=== PATIENT | female | born 1980 | race Caucasian/White ===

== ENCOUNTER 2017-01-13 18:57 | Emergency (ER) | payer MEDICAID, OTHER ==
[2017-01-13 19:07] VITALS: BP 133/81; PULSE 76; RESP 16; TEMP 97.7; O2SAT 98
[2017-01-13] MEDS ORDERED: Sodium Chloride 0.9% 1,000 ML IV STA (19:46)
--- NOTE | 2017-01-13 20:13 | ED PDOC ---
HPI: Abdomen Time Seen by Provider: 01/13/17 19:15 Chief Complaint (Nursing): Abdominal Pain Chief Complaint (Provider): Abdominal Pain History Per: Patient History/Exam Limitations: no limitations Onset/Duration Of Symptoms: Days (x2) Current Symptoms Are (Timing): Still Present Additional Complaint(s): Vera Dumont is a 36 year old female with previous medical history of diabetes , hypertension, and arthritis who presents to the emergency department with a complaint of lower abdominal pain associated with left-sided back pain, subjective fever, nausea, diarrhea, and dysuria ongoing for 2 days. Denied any vomiting or further medical complaints. PMD: none provided Past Medical History Reviewed: Historical Data, Nursing Documentation, Vital Signs Vital Signs: Last Vital Signs Temp 97.7 F 01/13/17 19:04 Pulse 76 01/13/17 19:04 Resp 16 01/13/17 19:04 BP 133/81 01/13/17 19:04 Pulse Ox 98 01/14/17 00:50 - Medical History PMH: Arthritis, Diabetes, HTN - Surgical History Other surgeries: hemorrhoid surgery - Family History Family History: States: Unknown Family Hx - Social History Current smoker - smoking cessation education provided: No Alcohol: None Drugs: Denies - Home Medications Home Medications: Ambulatory Orders Medication Instructions Recorded Nitrofurantoin Macrocrystals 100 mg PO BID #14 cap 01/14/17 [Macrobid] - Allergies Allergies/Adverse Reactions: Allergies Allergy/AdvReac Type Severity Reaction Status Date / Time No Known Allergies Allergy Verified 01/13/17 19:04 Review of Systems ROS Statement: Except As Marked, All Systems Reviewed And Found Negative Constitutional: Positive for: Fever Gastrointestinal: Positive for: Nausea, Abdominal Pain (lower), Diarrhea. Negative for: Vomiting Genitourinary Female: Positive for: Dysuria Musculoskeletal: Positive for: Back Pain (left-sided) Physical Exam - Reviewed Nursing Documentation Reviewed: Yes Vital Signs Reviewed: Yes - Physical Exam Appears: Positive for: Well, Non-toxic, No Acute Distress Head Exam: Positive for: ATRAUMATIC, NORMAL INSPECTION, NORMOCEPHALIC Skin: Positive for: Normal Color Cardiovascular/Chest: Positive for: Regular Rate, Rhythm. Negative for: Chest Non Tender Respiratory: Positive for: Normal Breath Sounds. Negative for: Respiratory Distress Gastrointestinal/Abdominal: Positive for: Normal Exam, Bowel Sounds, Soft. Negative for: Tenderness, Guarding, Rebound Back: Positive for: L CVA Tenderness. Negative for: Normal Inspection, R CVA Tenderness Extremity: Positive for: Normal ROM Lymphatic: Positive for: Inguinal Node Tenderness (left) Neurologic/Psych: Positive for: Alert, specialist managers II-XII, Oriented - Laboratory Results Result Diagrams: 01/13/17 20:41 01/13/17 20:41 - ECG O2 Sat by Pulse Oximetry: 98 (RA) Pulse Ox Interpretation: Normal Medical Decision Making Medical Decision Making: Initial Impression: Abdominal pain R/O UTI, kidney stones Initial Plan: * CT ABD/Pelvis without contrast * Labs * Toradol 30mg IV * NS 1,000ml IV per 150mls/hr * Zofran 4mg Time: 22:59 CT Abdomen/Pelvis: FINDINGS: Lower thorax: The bilateral lung bases are clear. ABDOMEN: Liver: No acute findings Gallbladder and bile ducts: No acute finding. No calcified stones. No intra- extrahepatic biliary ductal dilation. Pancreas: Limited evaluation secondary to the lack of intravenous contrast. Spleen: No acute findings. Adrenals: No acute findings. Kidneys and ureters: No obstructing stones. No hydronephrosis. Multiple phleboliths within the pelvis, both inferior and lateral to the course of the left ureter. PELVIS: Bladder: No acute findings. Reproductive: No acute findings. Appendix: The appendix is of normal caliber (series 5, image 65; series 601, image 65). ABDOMEN and PELVIS: Stomach and bowel: Colonic diverticulosis, without inflammation. Peritoneum: No acute findings. Lymph nodes: Limited evaluation without intravenous contrast. Vasculature: No aortic aneurysm. Bones: No acute fracture. IMPRESSION: No obstructive uropathy. Colonic diverticulosis, without inflammation. Time: 23:28 --Pending urinalysis and urine culture Time: 00:44 Clinical Impression: UTI, Abdominal pain Upon provider reevaluation patient is medically stable, and requires no further treatment in the ED at this time. Patient will be discharged with Rx for Macrobid. Counseling was provided and all questions were answered regarding diagnosis and need for follow up with PMD in 1-2 days. There is agreement to discharge plan. Return if symptoms persist or worsen. Scribe Attestation: Documented by Jessica Vilchis, acting as a scribe for Priti Trujillo MD. Provider Scribe Attestation: All medical record entries made by the Scribe were at my direction and personally dictated by me. I have reviewed the chart and agree that the record accurately reflects my personal performance of the history, physical exam, medical decision making, and the department course for this patient. I have also personally directed, reviewed, and agree with the discharge instructions and disposition. Disposition - Clinical Impression Clinical Impression: Abdominal pain - Patient ED Disposition Is Patient to be Admitted: No Doctor Will See Patient In The: Office Counseled Patient/Family Regarding: Studies Performed, Diagnosis, Need For Followup - Disposition Referrals: [facility] [Outside] [facility] [Outside] Disposition: Routine/Home Disposition Time: 21:00 Condition: IMPROVED Additional Instructions: follow up with your primary doctor in 1-2 days return to the ED with nay worsening or concerning symptoms. Prescriptions: Nitrofurantoin Macrocrystals [Macrobid] 100 mg PO BID #14 cap Instructions: Urinary Tract Infection in Women (ED), Abdominal Pain (ED) Forms: [employer] (T[employer]ight) Print Language: CROATIAN
[2017-01-13 20:45] LABS: BASO # 0.1 K/uL (0.0-0.2); BASO % 0.8 % (0.0-2.0); EOS # 0.2 K/uL (0.0-0.7); EOS % 1.7 % (0.0-4.0); HEMOGLOBIN 13.9 g/dL (12.0-16.0); LYMPH # 3.6 K/uL (1.0-4.3); LYMPH % 36.7 % (20.0-40.0); MEAN CELL VOLUME 88.5 fl (81.0-99.0); MEAN CORPUSCULAR HEMOGLOBIN 30.2 pg (27.0-31.0); MEAN CORPUSCULAR HGB CONC 34.1 g/dL (33.0-37.0); MEAN PLATELET VOLUME 8.8 fl (7.2-11.7); MONO # 0.5 K/uL (0.0-0.8); MONO % 4.9 % (0.0-10.0); NEUT # 5.5 K/uL (1.8-7.0); NEUT % 55.9 % (50.0-75.0); NRBC % 0.1 % (0.0-0.0); RBC 4.62 Mil/uL (3.80-5.20); RED CELL DISTRIBUTION WIDTH 12.4 % (11.5-14.5); WHITE BLOOD COUNT 9.8 K/uL (4.8-10.8)
[2017-01-13 20:54] LABS: ALB/GLOB RATIO 1.3 (1.0-2.1); ALBUMIN 4.2 g/dL (3.5-5.0); ALT/SGPT 220 U/L (9-52); AST/SGOT 117 U/L (14-36); BLOOD UREA NITROGEN 11 mg/dl (7-17); CALCIUM 9.4 mg/dL (8.4-10.2); GFR AFRICAN-AMERICAN > 60; GFR NON-AFRICAN AMERICAN > 60
--- NOTE | 2017-01-13 22:59 | CT ---
EXAM: CT Abdomen and Pelvis Without Intravenous Contrast CLINICAL HISTORY: 36 years old, female; Pain; Abdominal pain; Flank; Left; Additional info: L flank pain rule out stone TECHNIQUE: Axial computed tomography images of the abdomen and pelvis without intravenous contrast. All CT scans at this facility use one or more dose reduction techniques, viz.: automated exposure control; ma/kV adjustment per patient size (including targeted exams where dose is matched to indication; i.e. head); or iterative reconstruction technique. Coronal and sagittal reformatted images were created and reviewed. COMPARISON: No relevant prior studies available. FINDINGS: Lower thorax: The bilateral lung bases are clear. ABDOMEN: Liver: No acute findings Gallbladder and bile ducts: No acute finding. No calcified stones. No intra-extrahepatic biliary ductal dilation. Pancreas: Limited evaluation secondary to the lack of intravenous contrast. Spleen: No acute findings. Adrenals: No acute findings. Kidneys and ureters: No obstructing stones. No hydronephrosis. Multiple phleboliths within the pelvis, both inferior and lateral to the course of the left ureter. PELVIS: Bladder: No acute findings. Reproductive: No acute findings. Appendix: The appendix is of normal caliber (series 5, image 65; series 601, image 65). ABDOMEN and PELVIS: Stomach and bowel: Colonic diverticulosis, without inflammation. Peritoneum: No acute findings. Lymph nodes: Limited evaluation without intravenous contrast. Vasculature: No aortic aneurysm. Bones: No acute fracture. IMPRESSION: No obstructive uropathy. Colonic diverticulosis, without inflammation.
[2017-01-14 00:11] LABS: SQUAMOUS EPITHIAL 8 /hpf (0-5); URINE BACTERIA RARE (<OCC); URINE BILIRUBIN NEGATIVE (NEGATIVE); URINE BLOOD NEGATIVE (NEGATIVE); URINE CLARITY CLOUDY (Clear); URINE COLOR YELLOW (YELLOW); URINE GLUCOSE (UA) NEG (Normal); URINE LEUKOCYTE ESTERASE SMALL Leu/uL (Negative); URINE NITRATE NEGATIVE (NEGATIVE); URINE PROTEIN NEGATIVE (NEGATIVE); URINE TRIPLE PHOSPHATE CRYSTAL OCC /hpf (<OCC); URINE UROBILINOGEN 0.2-1.0 mg/dL (0.2-1.0)
== END 2017-01-14 00:50 | disposition home or self-care (01) ==
LOC: H.ER 18:57
DX: R10.30 Lower abdominal pain, unspecified (principal); I10 Essential (primary) hypertension; E11.9 Type 2 diabetes mellitus without complications; M19.90 Unspecified osteoarthritis, unspecified site

== ENCOUNTER 2017-10-07 18:14 | Emergency (ER) | payer MEDICAID ==
[2017-10-07 18:22] VITALS: O2SAT 99
[2017-10-07] MEDS ORDERED: Sodium Chloride 0.9% 1,000 ML IV STA (18:42)
--- NOTE | 2017-10-07 18:52 | ED PDOC ---
HPI: Abdomen <Weston Douglass - Last Filed: 10/07/17 20:22> Chief Complaint (Provider): Abdominal Pain History Per: Patient History/Exam Limitations: no limitations Onset/Duration Of Symptoms: Days (x2) Current Symptoms Are (Timing): Still Present Severity: Severe Location Of Pain/Discomfort: Diffuse <Uriel Arredondo - Last Filed: 10/08/17 19:42> Time Seen by Provider: 10/07/17 18:31 Chief Complaint (Nursing): GI Problem Additional Complaint(s): 36 year old female, with past medical history of gastritis, diabetes, and HTN, presents to the emergency department complaining of diffuse, severe abdominal pain accompanied with non bloody vomit and watery, non bloody diarrhea, onset 2 days. She states that she took medication for her gastritis, with no relief. Denies fever and chills. PMD: Berto Marks (Maria ElenaCedricknano Toney) Past Medical History <Weston Douglass - Last Filed: 10/07/17 20:22> Reviewed: Historical Data, Nursing Documentation, Vital Signs - Medical History PMH: Arthritis, Diabetes, Gastritis, HTN - Surgical History Other surgeries: hemorrhoids - Family History Family History: States: Unknown Family Hx <Uriel Arredondo - Last Filed: 10/08/17 19:42> Vital Signs: Last Vital Signs Temp 98.0 F 10/07/17 21:01 Pulse 90 10/07/17 21:01 Resp 16 10/07/17 21:01 BP 124/74 10/07/17 21:01 Pulse Ox 99 10/07/17 21:01 - Home Medications Home Medications: Ambulatory Orders Medication Instructions Recorded MetFORMIN [glucoPHAGE] 500 mg PO BID 10/07/17 Dumas-3 Fatty Acids/Fish Oil [Fish 1 tab PO DAILY 10/07/17 Oil 1,000 mg Capsule] Ondansetron ODT [Zofran ODT] 4 mg PO Q8 PRN #12 odt 10/07/17 - Allergies Allergies/Adverse Reactions: Allergies Allergy/AdvReac Type Severity Reaction Status Date / Time No Known Allergies Allergy Verified 10/07/17 18:20 Review of Systems ROS Statement: Except As Marked, All Systems Reviewed And Found Negative Constitutional: Negative for: Fever, Chills Gastrointestinal: Positive for: Vomiting (non bloody), Abdominal Pain (severe, diffuse), Diarrhea (watery, non bloody) <Uriel Arredondo - Last Filed: 10/08/17 19:42> Physical Exam - Reviewed Nursing Documentation Reviewed: Yes Vital Signs Reviewed: Yes - Physical Exam Appears: Positive for: Non-toxic, No Acute Distress Head Exam: Positive for: ATRAUMATIC, NORMOCEPHALIC Skin: Positive for: Normal Color, Warm, Dry Eye Exam: Positive for: Normal appearance, EOMI, PERRL ENT: Positive for: Normal ENT Inspection Neck: Positive for: Normal, Painless ROM, Supple Cardiovascular/Chest: Positive for: Regular Rate, Rhythm. Negative for: Murmur Respiratory: Positive for: Normal Breath Sounds. Negative for: Respiratory Distress Gastrointestinal/Abdominal: Positive for: Soft, Tenderness (mild diffuse) Back: Positive for: Other (bilateral lower back, and para spinal). Negative for : L CVA Tenderness, R CVA Tenderness Extremity: Positive for: Normal ROM Neurologic/Psych: Positive for: Alert, Oriented. Negative for: Motor/Sensory Deficits <Uriel Arredondo A - Last Filed: 10/08/17 19:42> - Laboratory Results Result Diagrams: 10/07/17 18:25 10/07/17 18:25 <Weston Douglass - Last Filed: 10/07/17 20:22> - Laboratory Results Result Diagrams: 10/07/17 18:25 10/07/17 18:25 - ECG O2 Sat by Pulse Oximetry: 99 (RA) Pulse Ox Interpretation: Normal <Uriel Arredondo - Last Filed: 10/08/17 19:42> Medical Decision Making <Weston Douglass - Last Filed: 10/07/17 20:22> <HieunilesUriel - Last Filed: 10/08/17 19:42> Medical Decision Making: Time: 20:16 CT Abd/ Pelvis FINDINGS: LUNG BASES: Unremarkable. ABDOMEN: LIVER: Unremarkable. GALLBLADDER AND BILE DUCTS: Unremarkable. No calcified stones. No ductal dilation. PANCREAS: Unremarkable. No mass. No ductal dilation. SPLEEN: Unremarkable. No splenomegaly. ADRENALS: Unremarkable. No mass. KIDNEYS AND URETERS: Unremarkable. No solid mass. No hydronephrosis. STOMACH AND BOWEL: Gastric mucosal may be thickened although this appear may also be from underdistension. Mild stool through the colon. PELVIS: APPENDIX: No findings to suggest acute appendicitis. BLADDER: Unremarkable. REPRODUCTIVE: Unremarkable as visualized. ABDOMEN and PELVIS: INTRAPERITONEAL SPACE: No free air. No significant fluid collection. BONES/JOINTS: No acute fracture. SOFT TISSUES: Unremarkable. VASCULATURE: Unremarkable. No abdominal aortic aneurysm. LYMPH NODES: Few scattered subcentimeter mesenteric lymph nodes. OTHER FINDINGS: Dependent atelecatasis. IMPRESSION: 1. Gastric mucosal may be thickened although this appear may also be from underdistension. 2. Mild stool through the colon. 3. Few scattered subcentimeter mesenteric lymph nodes. Scribe Attestation: Documented by Christine Casiano, acting as a scribe for Weston Douglass MD Provider Scribe Attestation: All medical record entries made by the Scribe were at my direction and personally dictated by me. I have reviewed the chart and agree that the record accurately reflects my personal performance of the history, physical exam, medical decision making, and the department course for this patient. I have also personally directed, reviewed, and agree with the discharge instructions and disposition. (Weston Douglass) Initial Impression: abdominal pain with vomiting and diarrhea DDx: gastroenteritis, cholecystitis, pancreatitis, considering other ddx, but unlikely: bowel perforation Time: 18:41 Initial Plan: --CT Abd/Pelvis IV contrast --CMP --Lipase --CBC w/ differential --Bentyl 10mg PO --Sodium Chloride 0.9% 1000ml IV --Pepcid 20mg IVP --Toradol 30mg IVP --Zofran 4mg PO Scribe Attestation: Documented by Christine Casiano, acting as a scribe for Uriel Arredondo MD Provider Scribe Attestation: All medical record entries made by the Scribe were at my direction and personally dictated by me. I have reviewed the chart and agree that the record accurately reflects my personal performance of the history, physical exam, medical decision making, and the department course for this patient. I have also personally directed, reviewed, and agree with the discharge instructions and disposition. (Uriel Arredondo) Disposition <Weston Douglass - Last Filed: 10/07/17 20:22> - Patient ED Disposition Is Patient to be Admitted: Transfer of Care Counseled Patient/Family Regarding: Studies Performed, Diagnosis - Disposition Disposition: Transfer of Care Disposition Time: 19:00 Patient Signed Over To: Weston Douglass <Uriel Arredondo - Last Filed: 10/08/17 19:42> - Clinical Impression Clinical Impression: Gastroenteritis - Disposition Referrals: [facility] [Outside] Condition: STABLE Prescriptions: Ondansetron ODT [Zofran ODT] 4 mg PO Q8 PRN #12 odt PRN Reason: Nausea/Vomiting Instructions: Viral Gastroenteritis Forms: [employer] (Czech) Print Language: CAMEROONIAN
[2017-10-07 18:59] LABS: BASO # 0.1 K/uL (0.0-0.2); BASO % 0.8 % (0.0-2.0); EOS % 0.5 % (0.0-4.0); HEMOGLOBIN 13.3 g/dL (12.0-16.0); LYMPH # 1.7 K/uL (1.0-4.3); LYMPH % 28.1 % (20.0-40.0); MEAN CELL VOLUME 87.1 fl (81.0-99.0); MEAN CORPUSCULAR HGB CONC 34.4 g/dL (33.0-37.0); MEAN PLATELET VOLUME 8.5 fl (7.2-11.7); MONO # 0.6 K/uL (0.0-0.8); MONO % 10.1 % (0.0-10.0); NEUT # 3.7 K/uL (1.8-7.0); NEUT % 60.5 % (50.0-75.0); NRBC % 0.1 % (0.0-0.0); RBC 4.45 Mil/uL (3.80-5.20); RED CELL DISTRIBUTION WIDTH 12.2 % (11.5-14.5); WHITE BLOOD COUNT 6.1 K/uL (4.8-10.8)
[2017-10-07] MEDS ORDERED: Iohexol 300 100 ML IJ ONE (19:10)
[2017-10-07] MEDS ORDERED: Sodium Chloride 0.9% 100 ML ONE (19:11)
--- NOTE | 2017-10-07 19:11 | ED PDOC ---
"- Laboratory Results Result Diagrams: 10/07/17 18:25 10/07/17 18:25 - ECG O2 Sat by Pulse Oximetry: 99 (RA) Medical Decision Making Medical Decision Makin:00 Dr. Arredondo endorses transfer of care to Dr. Douglass pending labs and CT Abd / Pelvis. 2019 EXAM: CT Abdomen and Pelvis With Intravenous Contrast EXAM DATE/TIME: Examination ordered 10/07/2017 6:41 PM. Image number total count reviewed [id number] CLINICAL HISTORY: The patient is 36 years old and is female; Pain and signs and symptoms; Vomiting and other: Diarrhea; Abdominal pain; Generalized; Patient HX: HX of gastitis; Additional info: Abdominal pain vomiting and diarrhea. Sent phy. Doc. Facility exam id and description: Ct_ abdpelciv abd pelvis iv contrast only. Sent prior CT a/p with report from 01-13-2017 TECHNIQUE: Axial computed tomography images of the abdomen and pelvis with intravenous contrast. All CT scans at this facility use one or more dose reduction techniques, viz.: automated exposure control; ma/kV adjustment per patient size (including targeted exams where dose is matched to indication; i.e. head); or iterative reconstruction technique. Coronal and sagittal reformatted images were created and reviewed. CONTRAST: 90 mL of [id number] administered intravenously. COMPARISON: CT - ABD PELVIS W/O PO OR IV CONT 2017-01-13 21:38 FINDINGS: LUNG BASES: Unremarkable. ABDOMEN: LIVER: Unremarkable. GALLBLADDER AND BILE DUCTS: Unremarkable. No calcified stones. No ductal dilation. PANCREAS: Unremarkable. No mass. No ductal dilation. SPLEEN: Unremarkable. No splenomegaly. ADRENALS: Unremarkable. No mass. KIDNEYS AND URETERS: Unremarkable. No solid mass. No hydronephrosis. STOMACH AND BOWEL: Gastric mucosal may be thickened although this appear may also be from underdistension. Mild stool through the colon. PELVIS: KELY BAR | Preliminary Radiology Report SENIOR INSPECTOR (QA) DISCREPANCY? If there is a discrepancy between the preliminary and final interpretation, please notify [facility] via [email or web address]. If you do not have access to our QA portal, call our QA team at [phone] CONFIDENTIALITY STATEMENT This report is intended only for the use of the referring physician, and only in accordance with law, If you received this in error, call [phone] Page 2 of 2 APPENDIX: No findings to suggest acute appendicitis. BLADDER: Unremarkable. REPRODUCTIVE: Unremarkable as visualized. ABDOMEN and PELVIS: INTRAPERITONEAL SPACE: No free air. No significant fluid collection. BONES/JOINTS: No acute fracture. SOFT TISSUES: Unremarkable. VASCULATURE: Unremarkable. No abdominal aortic aneurysm. LYMPH NODES: Few scattered subcentimeter mesenteric lymph nodes. OTHER FINDINGS: Dependent atelecatasis. IMPRESSION: 1. Gastric mucosal may be thickened although this appear may also be from underdistension. 2. Mild stool through the colon. 3. Few scattered subcentimeter mesenteric lymph nodes. Thank you for allowing us to participate in the care of your patient. Patient states she is feeling better, no longer having vomiting or diarrhea, was able to tolerate PO. CT shows non-acute findings, encouraged patient to keep up with fluids, will prescribe zofran ODT, advised to return to ER if vomiting returns despite medication, fevers, worsening abdominal pain, or any other concerning symptoms. Patient well appearing, ambulatory upon discharge. Disposition - Clinical Impression Clinical Impression: Gastroenteritis - POA Present On Arrival: None - Disposition Referrals: [facility] [Outside] Disposition: Routine/Home Disposition Time: 20:27 Condition: IMPROVED Prescriptions: Ondansetron ODT [Zofran ODT] 4 mg PO Q8 PRN #12 odt PRN Reason: Nausea/Vomiting Instructions: Viral Gastroenteritis Forms: [employer] (Polish) Print Language: SAMOAN"
[2017-10-07 19:14] LABS: ALB/GLOB RATIO 1.1 (1.0-2.1); ALBUMIN 3.5 g/dL (3.5-5.0); ALT/SGPT 76 U/L (9-52); AST/SGOT 44 U/L (14-36); BLOOD UREA NITROGEN 10 mg/dl (7-17); GFR AFRICAN-AMERICAN > 60; GFR NON-AFRICAN AMERICAN > 60; LIPASE 49 U/L (23-300)
[2017-10-07 21:02] VITALS: BP 124/74; PULSE 90; RESP 16; TEMP 98
--- NOTE | 2017-10-08 08:14 | CT ---
PROCEDURE: CT Abdomen and Pelvis with contrast HISTORY: abdominal pain vomiting and diarrhea COMPARISON: Abdomen pelvis CT without contrast 01/13/2017. TECHNIQUE: Following the intravenous administration of iodinated contrast material, a CT examination of the abdomen and pelvis performed from the domes of the diaphragms to the symphysis pubis with reformatted datasets provided not only axial but also sagittal and coronal planes. Oral contrast was not administered as per referring physician request. Contrast dose: Omnipaque 300, 90 cc Radiation dose: Total exam DLP = 742.61 mGy-cm. This CT exam was performed using one or more of the following dose reduction techniques: Automated exposure control, adjustment of the mA and/or kV according to patient size, and/or use of iterative reconstruction technique. FINDINGS: LOWER THORAX: Diminished hepatic attenuation is appreciate busy compatible with hepatic steatosis. No definite mass or intrahepatic biliary duct dilatation is appreciable. LIVER: Unremarkable. No gross lesion or ductal dilatation. GALLBLADDER AND BILE DUCTS: Unremarkable. PANCREAS: Unremarkable. No gross lesion or ductal dilatation. SPLEEN: Unremarkable. ADRENALS: Unremarkable. No mass. KIDNEYS AND URETERS: Unremarkable. No hydronephrosis. No solid mass. VASCULATURE: Unremarkable. No aortic aneurysm. BOWEL: Evaluation the gastrointestinal tract is compromised by the lack of intra oral contrast material. No bowel obstruction is evident has liquified fecal material throughout the colon compatible the patient's clinical history of diarrhea. Stomach is largely collapsed except for limited retained air and fluid. APPENDIX: Normal appendix. PERITONEUM: Unremarkable. No free fluid. No free air. LYMPH NODES: Unremarkable. No enlarged lymph nodes. BLADDER: Unremarkable. REPRODUCTIVE: Unremarkable. BONES: No acute fracture. OTHER FINDINGS: None. IMPRESSION: Liquid fecal material seen throughout various large-bowel segments compatible the patient's history of diarrhea. No prominent mural thickening is appreciated though would suggest colitis at this time. Lack of oral contrast limits interpretation of the bowel. No bowel obstruction, free air, ascites or mesenteric edema. Hepatic steatosis.
== END 2017-10-07 21:00 | disposition home or self-care (01) ==
LOC: H.ER 18:14
DX: K52.9 Noninfective gastroenteritis and colitis, unspecified (principal); E11.9 Type 2 diabetes mellitus without complications; I10 Essential (primary) hypertension; Z79.84 Long term (current) use of oral hypoglycemic drugs
CPT/HCPCS: 74177; 80053; 81025; 83690; 85025; 96361; 96374; 96375; 99283; J1885; J7040; Q9967

== ENCOUNTER 2017-12-06 14:08 | Emergency (ER) | payer MEDICAID ==
[2017-12-06 14:16] VITALS: BP 122/80; PULSE 78; RESP 18; TEMP 98.5; O2SAT 99
--- NOTE | 2017-12-06 14:34 | ED PDOC ---
HPI: Female Pain Time Seen by Provider: 12/06/17 14:14 Chief Complaint (Nursing): Dizziness/Lightheaded Chief Complaint (Provider): Genitourinary (Female) History Per: Patient History/Exam Limitations: no limitations Onset/Duration Of Symptoms: Days (x3) Current Symptoms Are (Timing): Still Present Additional Complaint(s): 37 year old female presents to the ED for evaluation of symptoms similar to UTIs she has had in the past. Patient states for the past three days she has been experiencing chills, nausea, lower abdominal pain radiating to her lower back, frequency, urgency, dysuria, dizziness, and an 8/10 frontal headache. Denies taking any medications besides her daily two doses of 500mg Metformin, which she is compliant with. Also, she reports her glucometer at home is broken , and is requesting her blood sugar levels to be checked at this time. Otherwise , (-) fever, (-) nausea/vomiting, (-) chest pain, (-) shortness of breath, (-) cough (-) recent travel (-) diarrhea (-) rash (-) visual changes (-) abnormal vaginal bleeding or discharge (-) blood in stools. LNMP: 2 years ago PMD: Sylvain Alcantara Past Medical History Reviewed: Historical Data, Nursing Documentation, Vital Signs Vital Signs: Last Vital Signs Temp 98.5 F 12/06/17 14:13 Pulse 78 12/06/17 14:13 Resp 18 12/06/17 14:13 BP 122/80 12/06/17 14:13 Pulse Ox 99 12/06/17 14:13 - Medical History PMH: Arthritis, Diabetes, Gastritis, HTN - Surgical History Other surgeries: procedure for hemorrhoids; left ear surg - Family History Family History: States: Unknown Family Hx - Social History Current smoker - smoking cessation education provided: No Alcohol: None Drugs: Denies - Home Medications Home Medications: Ambulatory Orders Medication Instructions Recorded MetFORMIN [glucoPHAGE] 500 mg PO BID 10/07/17 [place]-3 Fatty Acids/Fish Oil [Fish 1 tab PO DAILY 10/07/17 Oil 1,000 mg Capsule] Ondansetron ODT [Zofran ODT] 4 mg PO Q8 PRN #12 odt 10/07/17 Acetaminophen [Acetaminophen 8 650 mg PO Q8 PRN #24 tablet.er 12/06/17 Hour] Naproxen 500 mg PO BID PRN #20 tab 12/06/17 Nitrofurantoin Macrocrystals 100 mg PO BID #14 cap 12/06/17 [Macrobid] Phenazopyridine HCl [Pyridium] 200 mg PO BID PRN #4 tablet 12/06/17 - Allergies Allergies/Adverse Reactions: Allergies Allergy/AdvReac Type Severity Reaction Status Date / Time No Known Allergies Allergy Verified 10/07/17 18:20 Review of Systems ROS Statement: Except As Marked, All Systems Reviewed And Found Negative Constitutional: Negative for: Fever Cardiovascular: Negative for: Chest Pain Respiratory: Negative for: Shortness of Breath Gastrointestinal: Positive for: Nausea, Abdominal Pain (lower, radiating to lower back). Negative for: Vomiting Genitourinary Female: Positive for: Dysuria, Frequency (and urgency) Neurological: Positive for: Headache (frontal), Dizziness Physical Exam - Reviewed Nursing Documentation Reviewed: Yes Vital Signs Reviewed: Yes - Physical Exam Comments: GENERAL APPEARANCE: Patient is awake, alert, oriented x 3, in no acute distress. Resting comfortably. SKIN: Warm, dry; (-) cyanosis. EYES: (-) conjunctival pallor. ENMT: Mucous membranes are moist. Airway patent: (-) stridor. Pharynx: (-) swelling, (-) erythema. TMs (-) bulging (-) erythema NECK: Supple, FROM (-) tenderness (-) stiffness, (-) lymphadenopathy. CHEST AND RESPIRATORY: (-) wheezing; (-) rales, (-) rhonchi, (-) rub; breath sounds equal bilaterally. Speaking in full sentences, respirations even and nonlabored. HEART AND CARDIOVASCULAR: (-) irregularity; (-) murmur, (-) gallop. ABDOMEN AND GI: Soft; (+) suprapubic tenderness (-) distention, (-) guarding, ( -) palpable mas (-) CVA tenderness bilterally. BACK: (+) left paralumbar tenderness (-) midline tenderness EXTREMITIES: (-) deformity, (-) edema. NEURO AND PSYCH: Mental status as above; (-) focal findings. Gait steady, speech clear. (-) facial asymmetry. EOMI and painless. Pupils equal and reactive. CN II-XII grossly intact. Cerebellar tests intact. - Laboratory Results Result Diagrams: 12/06/17 14:33 12/06/17 14:33 - ECG O2 Sat by Pulse Oximetry: 99 (RA) Pulse Ox Interpretation: Normal Medical Decision Making Medical Decision Making: Time: 1416 Initial Impression: nausea, headache, dizziness, urinary frequency, dysuria, probable UTI Initial Plan: --EKG --CMP --Urine --CBC with differential --Antivert 25 mg PO --Normal saline IV --Reglan 10 mg IVP --Toradol 30mg IVP --Urine culture --Glucose accucheck --Urinalysis --Pyridium PO 1430 test is negative. Accucheck 116. 1510 Labs reviewed. No elevation of WBC. H&H stable. EKG: NSR @ 67bpm (-) ST elevation, QTc 395 Urinalysis (-) nitrates (-) leukocytes. 1550 Patient reports persistent headache. Head CT without contrast ordered to r/o intracranial pathology. 164 CT Head FINDINGS: HEMORRHAGE: No intracranial hemorrhage. BRAIN: No mass effect or edema. No atrophy or chronic microvascular ischemic changes. VENTRICLES: Unremarkable. No hydrocephalus. CALVARIUM: Unremarkable. PARANASAL SINUSES: Unremarkable as visualized. No significant inflammatory changes MASTOID AIR CELLS: Unremarkable as visualized. No inflammatory changes. OTHER FINDINGS: None. IMPRESSION: No acute intracranial pathology. 1710 On re-evaluation, patient reports improvement of symptoms, resolution of headache, abdominal pain, nausea and dizziness, however reports persistent urinary symptoms. Macrobid 100mg PO ordered. Patient remains AAOx3, in no acute distress. Neck is supple, lungs CTA, cardiac RRR, abdomen is soft and non-tender, neuro exam shows no focal findings. VSS, stable for discharge. Diagnostic results d/w the patient in great detail. Dx of headache, dizziness, dysuria, possible UTI d/w the patient. Based on history, exam and diagnostic results plan will be for discharge and outpatient follow up. Advised to follow up with primary care physician/clinic in 1-2 days without fail. Advised to take medication as prescribed. Return to the emergency room at any time for any new or worsening symptoms. Patient states she fully agrees with and understands discharge instructions. States that she agrees with the plan and disposition. Verbalized and repeated discharge instructions and plan. I have given the patient opportunity to ask any additional questions. Scribe Attestation: Documented by Christine Casiano, acting as a scribe for Paulina Jones PA-C. Provider Scribe Attestation: All medical record entries made by the Scribe were at my direction and personally dictated by me. I have reviewed the chart and agree that the record accurately reflects my personal performance of the history, physical exam, medical decision making, and the department course for this patient. I have also personally directed, reviewed, and agree with the discharge instructions and disposition. Disposition - Clinical Impression Clinical Impression: Dizziness, UTI (urinary tract infection), Headache, Abdominal pain, Chills - Patient ED Disposition Is Patient to be Admitted: No Counseled Patient/Family Regarding: Studies Performed, Diagnosis, Need For Followup, Rx Given - Disposition Referrals: Sylvain Alcantara MD [Primary Care Provider] - Disposition: Routine/Home Disposition Time: 17:09 Condition: STABLE Additional Instructions: FOLLOW UP WITH PMD IN 1-2 DAYS WITHOUT FAIL. RETURN TO ED WITH ANY NEW OR WORSENING SYMPTOMS. Prescriptions: Acetaminophen [Acetaminophen 8 Hour] 650 mg PO Q8 PRN #24 tablet.er PRN Reason: Headache Naproxen 500 mg PO BID PRN #20 tab PRN Reason: Pain, Moderate (4-7) Nitrofurantoin Macrocrystals [Macrobid] 100 mg PO BID #14 cap Phenazopyridine HCl [Pyridium] 200 mg PO BID PRN #4 tablet PRN Reason: URINARY DISCOMFORT Instructions: Urinary Tract Infections in Adults, Headache, Adult, Acute Abdomen (Belly Pain), Adult (DC), Dizziness, Nonvertigo, (DC) Forms: [employer] (E[place]ian) Print Language: MACANESE - POA Present On Arrival: None Results - Lab Results Lab Results: 12/06/17 12/06/17 12/06/17 14:33 14:33 14:33 WBC 8.7 RBC 4.46 Hgb 13.5 Hct 39.6 MCV 88.7 MCH 30.3 MCHC 34.2 RDW 12.7 Plt Count 266 MPV 8.4 Neut % (Auto) 61.4 Lymph % (Auto) 30.8 [place] % (Auto) 5.8 Eos % (Auto) 1.6 Baso % (Auto) 0.4 Neut # (Auto) 5.3 Lymph # (Auto) 2.7 [place] # (Auto) 0.5 Eos # (Auto) 0.1 Baso # (Auto) 0.0 Sodium 143 Potassium 3.5 L Chloride 105 Carbon Dioxide 27 Anion Gap 15 BUN 12 Creatinine 0.5 L Est GFR ( Amer) > 60 Est GFR (Non-Af Amer) > 60 POC Glucose (mg/dL) Random Glucose 89 Calcium 9.2 Total Bilirubin 0.4 AST 50 H ALT 62 H Alkaline Phosphatase 68 Total Protein 7.1 Albumin 4.1 Globulin 3.0 Albumin/Globulin Ratio 1.4 Urine Color Yellow Urine Clarity Turbid Urine pH 8.0 Ur Specific [place] 1.019 Urine Protein Negative Urine Glucose (UA) Neg Urine Ketones Negative Urine Blood Negative Urine Nitrate Negative Urine Bilirubin Negative Urine Urobilinogen 0.2-1.0 Ur Leukocyte Esterase Neg Urine RBC (Auto) 1 Urine Microscopic WBC 2 Ur Squamous Epith Cells 13 H Urine Bacteria Rare Urine Yeast (Budding) Few H 12/06/17 14:23 WBC RBC Hgb Hct MCV MCH MCHC RDW Plt Count MPV Neut % (Auto) Lymph % (Auto) [place] % (Auto) Eos % (Auto) Baso % (Auto) Neut # (Auto) Lymph # (Auto) [place] # (Auto) Eos # (Auto) Baso # (Auto) Sodium Potassium Chloride Carbon Dioxide Anion Gap BUN Creatinine Est GFR ( Amer) Est GFR (Non-Af Amer) POC Glucose (mg/dL) 116 H Random Glucose Calcium Total Bilirubin AST ALT Alkaline Phosphatase Total Protein Albumin Globulin Albumin/Globulin Ratio Urine Color Urine Clarity Urine pH Ur Specific [place] Urine Protein Urine Glucose (UA) Urine Ketones Urine Blood Urine Nitrate Urine Bilirubin Urine Urobilinogen Ur Leukocyte Esterase Urine RBC (Auto) Urine Microscopic WBC Ur Squamous Epith Cells Urine Bacteria Urine Yeast (Budding)
[2017-12-06 15:02] LABS: BASO % 0.4 % (0.0-2.0); EOS # 0.1 K/uL (0.0-0.7); EOS % 1.6 % (0.0-4.0); HEMOGLOBIN 13.5 g/dL (12.0-16.0); LYMPH # 2.7 K/uL (1.0-4.3); LYMPH % 30.8 % (20.0-40.0); MEAN CELL VOLUME 88.7 fl (81.0-99.0); MEAN CORPUSCULAR HEMOGLOBIN 30.3 pg (27.0-31.0); MEAN CORPUSCULAR HGB CONC 34.2 g/dL (33.0-37.0); MEAN PLATELET VOLUME 8.4 fl (7.2-11.7); MONO # 0.5 K/uL (0.0-0.8); MONO % 5.8 % (0.0-10.0); NEUT # 5.3 K/uL (1.8-7.0); NEUT % 61.4 % (50.0-75.0); NRBC % 0.2 % (0.0-0.0); RBC 4.46 Mil/uL (3.80-5.20); RED CELL DISTRIBUTION WIDTH 12.7 % (11.5-14.5); WHITE BLOOD COUNT 8.7 K/uL (4.8-10.8)
[2017-12-06 15:04] LABS: SQUAMOUS EPITHIAL 13 /hpf (0-5); URINE BACTERIA RARE (<OCC); URINE BILIRUBIN NEGATIVE (NEGATIVE); URINE BLOOD NEGATIVE (NEGATIVE); URINE CLARITY TURBID (Clear); URINE COLOR YELLOW (YELLOW); URINE GLUCOSE (UA) NEG (Normal); URINE LEUKOCYTE ESTERASE NEG Leu/uL (Negative); URINE PROTEIN NEGATIVE (NEGATIVE); URINE UROBILINOGEN 0.2-1.0 mg/dL (0.2-1.0)
[2017-12-06 15:08] LABS: ALB/GLOB RATIO 1.4 (1.0-2.1); ALBUMIN 4.1 g/dL (3.5-5.0); ALT/SGPT 62 U/L (9-52); AST/SGOT 50 U/L (14-36); BLOOD UREA NITROGEN 12 mg/dl (7-17); CALCIUM 9.2 mg/dL (8.4-10.2); GFR AFRICAN-AMERICAN > 60; GFR NON-AFRICAN AMERICAN > 60
[2017-12-06] MEDS: Sodium Chloride 0.9% 1,000 ML IV SCH ×2 (15:10→15:56)
--- NOTE | 2017-12-06 16:50 | CT ---
PROCEDURE: CT HEAD WITHOUT CONTRAST. HISTORY: headache, dizziness COMPARISON: None available. TECHNIQUE: Axial computed tomography images were obtained through the head/brain without intravenous contrast. Radiation dose: Total exam DLP = 1602.4 mGy-cm. This CT exam was performed using one or more of the following dose reduction techniques: Automated exposure control, adjustment of the mA and/or kV according to patient size, and/or use of iterative reconstruction technique. FINDINGS: HEMORRHAGE: No intracranial hemorrhage. BRAIN: No mass effect or edema. No atrophy or chronic microvascular ischemic changes. VENTRICLES: Unremarkable. No hydrocephalus. CALVARIUM: Unremarkable. PARANASAL SINUSES: Unremarkable as visualized. No significant inflammatory changes. MASTOID AIR CELLS: Unremarkable as visualized. No inflammatory changes. OTHER FINDINGS: None. IMPRESSION: No acute intracranial pathology.
== END 2017-12-06 17:25 | disposition home or self-care (01) ==
LOC: H.ER 14:08
DX: N39.0 Urinary tract infection, site not specified (principal); R51 Headache; R42 Dizziness and giddiness; E11.9 Type 2 diabetes mellitus without complications; I10 Essential (primary) hypertension; Z79.84 Long term (current) use of oral hypoglycemic drugs; R10.9 Unspecified abdominal pain; R68.83 Chills (without fever)
CPT/HCPCS: 70450; 80053; 81003; 81025; 82948; 85025; 87086; 96374; 96375; 99285; J1885; J2765; J7030

== ENCOUNTER 2018-04-06 11:37 | Emergency (ER) | payer MEDICAID ==
[2018-04-06 11:42] VITALS: BMI 34.9
[2018-04-06] MEDS ORDERED: Sodium Chloride 0.9% 1,000 ML IV STA ×2 (12:15→12:17)
--- NOTE | 2018-04-06 12:20 | ED PDOC ---
HPI: Abdomen Time Seen by Provider: 04/06/18 12:03 Chief Complaint (Provider): abdominal pain History Per: Patient History/Exam Limitations: no limitations Onset/Duration Of Symptoms: Hrs (this morning) Current Symptoms Are (Timing): Still Present Location Of Pain/Discomfort: Epigastric Associated Symptoms: Nausea, Vomiting, Diarrhea. denies: Fever, Chills Additional Complaint(s): Vera Dumont is a 37 year old female, with a past medical history of diabetes, who presents to the emergency department complaining of epigastric pain associated with nausea, vomit and diarrhea since this morning. Patient is also complaining of generalized body aches and headaches. She denies any fever, chills or bloody stools. No further medical complaints. PMD: None provided. Past Medical History Reviewed: Historical Data, Nursing Documentation, Vital Signs Vital Signs: Last Vital Signs Temp 98.1 F 04/06/18 11:43 Pulse 102 H 04/06/18 11:43 Resp 17 04/06/18 11:43 BP 132/92 H 04/06/18 11:43 Pulse Ox 98 04/06/18 11:43 - Medical History PMH: Arthritis, Diabetes, Gastritis, HTN Denies: Chronic Kidney Disease - Surgical History Surgical History: No Surg Hx - Family History Family History: States: Unknown Family Hx - Home Medications Home Medications: Ambulatory Orders Medication Instructions Recorded MetFORMIN [glucoPHAGE] 500 mg PO BID 10/07/17 [place]-3 Fatty Acids/Fish Oil [Fish 1 tab PO DAILY 10/07/17 Oil 1,000 mg Capsule] Ondansetron ODT [Zofran ODT] 4 mg PO Q8 PRN #12 odt 10/07/17 Acetaminophen [Acetaminophen 8 650 mg PO Q8 PRN #24 tablet.er 12/06/17 Hour] Naproxen 500 mg PO BID PRN #20 tab 12/06/17 Nitrofurantoin Macrocrystals 100 mg PO BID #14 cap 12/06/17 [Macrobid] Phenazopyridine HCl [Pyridium] 200 mg PO BID PRN #4 tablet 12/06/17 Famotidine [Pepcid] 20 mg PO Q12 #20 tab 04/06/18 Ondansetron [Zofran] 4 mg PO Q8H #10 tab 04/06/18 traMADol [Ultram] 50 mg PO Q8 #10 tab 04/06/18 - Allergies Allergies/Adverse Reactions: Allergies Allergy/AdvReac Type Severity Reaction Status Date / Time No Known Allergies Allergy Verified 10/07/17 18:20 Review of Systems ROS Statement: Except As Marked, All Systems Reviewed And Found Negative Constitutional: Positive for: Other (generalized body aches). Negative for: Fever, Chills Gastrointestinal: Positive for: Nausea, Vomiting, Abdominal Pain (epigastric), Diarrhea. Negative for: Hematochezia Neurological: Positive for: Headache Physical Exam - Reviewed Nursing Documentation Reviewed: Yes Vital Signs Reviewed: Yes - Physical Exam Appears: Positive for: No Acute Distress Head Exam: Positive for: ATRAUMATIC, NORMAL INSPECTION, NORMOCEPHALIC Skin: Positive for: Normal Color, Warm, Dry Eye Exam: Positive for: Normal appearance, EOMI, PERRL Neck: Positive for: Normal, Painless ROM Cardiovascular/Chest: Positive for: Regular Rate, Rhythm. Negative for: Murmur Respiratory: Positive for: Normal Breath Sounds. Negative for: Respiratory Distress Gastrointestinal/Abdominal: Positive for: Tenderness (epigastric) Back: Positive for: Normal Inspection. Negative for: L CVA Tenderness, R CVA Tenderness, Vertebral Tenderness Extremity: Positive for: Normal ROM (upper and lower extremities). Negative for: Deformity, Swelling Neurologic/Psych: Positive for: Alert, Oriented. Negative for: Motor/Sensory Deficits - Laboratory Results Result Diagrams: 04/06/18 13:00 04/06/18 13:00 - ECG O2 Sat by Pulse Oximetry: 98 (RA) Pulse Ox Interpretation: Normal Medical Decision Making Medical Decision Making: Time: 12:03 Initial Plan: --CMP --Urine --Urine dipstick --CBC w/ differential --Sodium Chloride 1,000 ml IV 200 mls/hr --Pepcid 20 mg IVP --Toradol 30 mg IVP --Zofran Inj 4 mg IVP --Reevaluation Scribe Attestation: Documented by Zeus Chung, acting as a scribe for London Crawford MD. Provider Scribe Attestation: All medical record entries made by the Scribe were at my direction and personally dictated by me. I have reviewed the chart and agree that the record accurately reflects my personal performance of the history, physical exam, medical decision making, and the department course for this patient. I have also personally directed, reviewed, and agree with the discharge instructions and disposition. Disposition - Clinical Impression Clinical Impression: Gastroenteritis - Patient ED Disposition Is Patient to be Admitted: No Counseled Patient/Family Regarding: Studies Performed, Diagnosis, Need For Followup, Rx Given - Disposition Referrals: [facility] [Outside] Disposition: Routine/Home Disposition Time: 14:44 Condition: FAIR Prescriptions: Famotidine [Pepcid] 20 mg PO Q12 #20 tab Ondansetron [Zofran] 4 mg PO Q8H #10 tab traMADol [Ultram] 50 mg PO Q8 #10 tab Instructions: Viral Gastroenteritis
[2018-04-06 13:23] LABS: BASO % 0.1 % (0.0-2.0); EOS # 0.1 K/uL (0.0-0.7); EOS % 0.6 % (0.0-4.0); HEMOGLOBIN 14.8 g/dL (12.0-16.0); MEAN CELL VOLUME 92.4 fl (81.0-99.0); MEAN CORPUSCULAR HEMOGLOBIN 30.3 pg (27.0-31.0); MEAN CORPUSCULAR HGB CONC 32.8 g/dL (33.0-37.0); MEAN PLATELET VOLUME 8.3 fl (7.2-11.7); MONO # 0.4 K/uL (0.0-0.8); MONO % 3.8 % (0.0-10.0); NEUT # 9.4 K/uL (1.8-7.0); NEUT % 86.5 % (50.0-75.0); NRBC % 0.1 % (0.0-0.0); PLATELET COUNT 257 K/uL (130-400); RBC 4.89 Mil/uL (3.80-5.20); RED CELL DISTRIBUTION WIDTH 12.5 % (11.5-14.5); WHITE BLOOD COUNT 10.9 K/uL (4.8-10.8)
[2018-04-06 13:34] LABS: ALB/GLOB RATIO 1.3 (1.0-2.1); ALBUMIN 4.3 g/dL (3.5-5.0); ALT/SGPT 51 U/L (9-52); AST/SGOT 34 U/L (14-36); BLOOD UREA NITROGEN 14 mg/dl (7-17); CALCIUM 8.8 mg/dL (8.4-10.2); GFR NON-AFRICAN AMERICAN > 60
[2018-04-06 14:07] LABS: BASOPHIL 1 % (0-2); LYMPHOCYTE 8 % (20-50); MONOCYTE 3 % (0-10); NEUTROPHIL 88 % (42-75); PLATELET ESTIMATE NORMAL (NORMAL); TOTAL CELLS COUNTED 100
[2018-04-06 15:43] VITALS: BP 129/70; PULSE 75; RESP 18; TEMP 97.9; O2SAT 99
== END 2018-04-06 15:42 | disposition home or self-care (01) ==
LOC: H.ER 11:37
DX: K52.9 Noninfective gastroenteritis and colitis, unspecified (principal); E11.9 Type 2 diabetes mellitus without complications; Z79.84 Long term (current) use of oral hypoglycemic drugs; I10 Essential (primary) hypertension; Z79.899 Other long term (current) drug therapy
CPT/HCPCS: 80053; 81025; 85025; 96374; 96375; 99283; J1885; J2405; J7030